=== PATIENT | male | born 1970 | race Caucasian/White ===

== ENCOUNTER 2022-03-10 16:30 | Emergency (ER) | payer OTHER, SELFPAY ==
--- NOTE | ~2022-03-10 | XR_ITS ---
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 RESULT: Lines, tubes, and devices: None. Lungs and pleura: Clear. Cardiomediastinal silhouette: Stable. Other: No acute osseous or upper abdominal finding. IMPRESSION: No acute cardiopulmonary process. Reviewed, dictated and finalized at location K. X ENGINEER
[2022-03-10 16:33] VITALS: BP 157/80; PULSE 99; RESP 18; TEMP 37.2; O2SAT 99
[2022-03-10 16:42] VITALS: O2SAT 98
[2022-03-10 17:25] LABS: Influenza A QL RT-PCR Positive (Negative); Influenza B QL RT-PCR Negative (Negative); RSV RNA, RT-PCR Negative (Negative); SARS-CoV-2 RNA PCR Negative
--- NOTE | 2022-03-10 17:31 | ECG_ITS ---
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
--- NOTE | 2022-03-10 17:32 | ED.URI ---
HPI - URI/Sore Throat General Chief Complaint: Upper Respiratory Infection Stated Complaint: fever, congestion Time Seen by Provider: 03/10/22 17:06 Source: patient Mode of arrival: ambulatory Limitations: no limitations History of Present Illness HPI Narrative: This is a 51-year-old male that presents to the emergency department for cold symptoms present over the last 2 days. Reports fever, cough, congestion, and myalgias. Reports he has been having sharp, intermittent chest pains. He is not influenza vaccinated. He has been taking [id number] cold medications with little relief. Denies shortness of breath. Related Data Allergies Allergy/AdvReac Type Severity Reaction Status Date / Time No Known Allergies Allergy Verified 03/10/22 16:43 Review of Systems Review of Systems: CONSTITUTIONAL: Denies fever EYES: Denies redness, or discharge. ENT: Reports rhinorrhea, congestion. Denies otalgia. CARDIOVASCULAR: Reports chest pain. Denies edema. RESPIRATORY: Reports cough. Denies dyspnea. MUSCULOSKELETAL: Reports myalgia. All systems reviewed & are unremarkable except as noted in HPI and below PMFSH Past Medical History Medical History (Updated 03/10/22 @ 18:21 by Emelyn Camacho PA-C) History of diabetes mellitus History of hyperlipidemia History of hypertension Social History Social History (Updated 03/10/22 @ 17:35 by Emelyn Camacho PA-C) Smoking status: Never smoker Exam Narrative: GENERAL: Well-appearing, well-nourished, and in no acute distress. HEAD: Normocephalic, atraumatic. EYES: EOMI. ENT: Nares clear, no rhinorrhea or epistaxis. Mucous membranes moist. Oropharynx without tonsillar hypertrophy exudate or other lesions. Bilateral TMs pearly mcintosh non-bulging NECK: Supple. No adenopathy or masses. CHEST: Clear to auscultation. No respiratory distress. No wheezes rales or rhonchi HEART: Regular rate and rhythm. No murmur heard. Normal peripheral pulses. EXTREMITIES: Normal range of motion. No edema. SKIN: Warm, dry, no rash. NEURO: No focal deficits. Alert and oriented x3. PSYCH: Normal mood and affect Course Vital Signs Vital signs: Vital Signs Temperature 99.0 F 03/10/22 16:33 Pulse Rate 99 03/10/22 16:33 Respiratory Rate 18 03/10/22 16:33 Blood Pressure 157/80 H 03/10/22 16:33 Pulse Oximetry 99 03/10/22 16:33 Oxygen Delivery Room Air 03/10/22 16:33 Temperature 99.0 F 03/10/22 16:33 Pulse Rate 99 03/10/22 16:33 Respiratory Rate 18 03/10/22 16:33 Blood Pressure 157/80 H 03/10/22 16:33 Pulse Oximetry 98 03/10/22 16:42 Oxygen Delivery Room Air 03/10/22 16:42 MDM - URI/Sore Throat MDM Narrative Medical decision making narrative: Patient presents to the ER for cold symptoms present over the last 2 days. Reporting some intermittent chest pain. Patient is afebrile and nontoxic appearing. His lungs are clear on exam. CBC without concerning findings. Metabolic panel shows hyperglycemia. Otherwise no concerning findings. EKG without acute changes and baseline troponin is negative. Patient found to have Influenza A. Would like to pursue treatment with Tamiflu. Was instructed on other symptomatic management of viral infection. He is to follow-up with primary care provider. He was given warnings to return to the ER Lab Data Attestation: I reviewed the patient's lab results. 03/10/22 17:49 03/10/22 17:49 Labs: Lab Results 03/10/22 03/10/22 03/10/22 Range/Units 16:41 17:49 17:49 WBC 6.4 (4.5-10.0) K/mm3 RBC 5.62 (4.6-6.20) M/mm3 Hgb 15.2 (14.0-18.0) g/dL Hct 45.2 (42.0-52.0) % MCV 80.4 (80-100) fl MCH 27.0 (26-34) pg MCHC 33.6 (32-36) g/dl RDW 13.0 (11.5-14.5) % Plt Count 172 (150-375) k/mm3 MPV 9.3 (7.4-10.4) fl Immature Gran % (Auto) 1.4 H (0-0.5) % Neut % (Auto) 69.1 (45.5-73.1) % Lymph % (Auto) 14.6 L (18.3-44.2) % [place] % (Auto) 13.3 H
[2022-03-10] MEDS: ACETAMINOPHEN 500 MG TABLET 1000 MG PO (17:39)
[2022-03-10 17:54] LABS: Basophils Percent Auto 0.5 % (0.2-1.2); Eosinophils Absolute Auto 0.1 K/mm3 (0-0.3); Eosinophils Percent Auto 1.1 % (0-4.4); Hematocrit 45.2 % (42.0-52.0); Hemoglobin 15.2 g/dL (14.0-18.0); Immature Granulocyte Absolute 0.09 K/mm3 (0.00-0.031); Immature Granulocyte Percent A 1.4 % (0-0.5); Lymphocytes Absolute Auto 0.93 K/mm3 (0.9-3.2); Lymphocytes Percent Auto 14.6 % (18.3-44.2); Mean Corpuscular HGB Conc 33.6 g/dl (32-36); Mean Corpuscular Volume 80.4 fl (80-100); Mean Platelet Volume 9.3 fl (7.4-10.4); Monocytes Absolute Auto 0.9 K/mm3 (0.1-0.6); Monocytes Percent Auto 13.3 % (2.6-8.5); Neutrophils Absolute Auto 4.4 K/mm3 (1.3-6.7); Neutrophils Percent Auto 69.1 % (45.5-73.1); Platelet Count Result 172 k/mm3 (150-375); Red Blood Count 5.62 M/mm3 (4.6-6.20); White Blood Count 6.4 K/mm3 (4.5-10.0)
[2022-03-10 18:16] LABS: Anion Gap 9 mmol/L (8-16); Blood Urea Nitrogen 12 mg/dL (9-20); Calcium 9.4 mg/dL (8.4-10.2); Carbon Dioxide 27 mmol/L (22-30); Chloride 97 mmol/L (98-107); Estimated CRCL calculation 99 ml/min; Estimated Glomerular Filt Rate > 60; Glucose 323 mg/dL (65-110); Potassium 4.4 mmol/L (3.4-5.0); Sodium 133 mmol/L (137-145)
[2022-03-10 18:28] LABS: Troponin I < 0.012 ng/mL (0.000-0.034)
== END 2022-03-10 18:40 | disposition home or self-care (01) ==
PROVIDERS: Emergency Medicine; Emergency Provider Physician Assistant
DX: J10.1 Influenza due to other identified influenza virus with other respiratory manifestations (principal); Z20.822 Contact with and (suspected) exposure to COVID-19; E11.9 Type 2 diabetes mellitus without complications; E78.5 Hyperlipidemia, unspecified; I10 Essential (primary) hypertension
CPT/HCPCS: 36415; 71045; 80048; 84484; 85025; 87637; 93005; 99284; A9270

== ENCOUNTER 2023-04-06 14:05 | Emergency (ER) | payer OTHER, SELFPAY ==
--- NOTE | ~2023-04-06 | CT_ITS ---
EXAMINATION: CT cervical spine wo con DATE: 04/06/2023 16:24 INDICATION: fall, hx c5/6 fusion TECHNIQUE: Computed tomography (CT) of the cervical spine was performed without intravenous contrast. Automated exposure control and iterative reconstruction technique were employed. The dose-length pro duct was 430.86 mGy-cm. COMPARISON: None. FINDINGS: Vertebral Body Alignment: Intact. Craniocervical and atlantoaxial alignment: Mild degenerative change. Alignment intact. Osseous structures/fracture: No evidence of a lytic or blastic process in the visualized spine. No e vidence of acute fracture. Uncomplicated appearing ACDF hardware at C5-7. Cervical soft tissues: The paraspinal soft tissues planes are maintained. Degenerative changes: Multilevel moderate degenerative disc disease and mild facet arthropathy. Sever e left neural foraminal narrowing at C4-5 secondary to degenerative uncovertebral joint and facet vanesa nge. Severe right neural foraminal narrowing at C5-6 secondary to degenerative uncovertebral joint ch milton. Moderate central canal stenosis at C5-6 secondary to a posteriorly directed osteophyte. IMPRESSION: No acute fracture or traumatic malalignment in the cervical spine. Reviewed, dictated and finalized at location K. RTER
--- NOTE | ~2023-04-06 | CT_ITS ---
EXAMINATION: CT thoracic spine wo con DATE: 04/06/2023 16:24 INDICATION: fall, pain to right side . TECHNIQUE: Computed tomography (CT) of the thoracic spine was performed without intravenous contrast. The dose-length product was 1497.37 mGy-cm. COMPARISON: None FINDINGS: Vertebral body alignment intact. Vertebral body heights preserved. Multilevel mild disc space narrowi ng and marginal osteophytosis. No traumatic malalignment or fracture. Nonobstructing right renal calc ifications. Right upper lobe granuloma. Calcified right hilar nodes. Bibasilar scar/atelectasis. IMPRESSION: No acute fracture or traumatic malalignment detected in the thoracic spine Reviewed, dictated and finalized at location K. L AID
--- NOTE | ~2023-04-06 | XR_ITS ---
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 RESULT: Lines, tubes, and devices: Lower cervical ACDF hardware. Lungs and pleura: Low volumes with bibasilar atelectasis. Granulomas calcifications. Cardiothymic silhouette: Stable. Other: No acute upper abdominal finding. Possible nondisplaced right anterolateral eighth rib fractu re. IMPRESSION: Possible nondisplaced right anterolateral eighth rib fracture, correlate with pain/tenderness. Reviewed, dictated and finalized at location K. UTYLENE OPERATOR CHIEF IMPRESSION: Possible nondisplaced right anterolateral eighth rib fracture, correlate with p ain/tenderness.
[2023-04-06 14:08] VITALS: BP 154/84; PULSE 73; RESP 16; TEMP 36.8; O2SAT 97
--- NOTE | 2023-04-06 15:27 | ED.BACK ---
HPI - Back Pain/Injury General Chief Complaint: Back Pain/Injury Stated Complaint: right upper back pain Time Seen by Provider: 04/06/23 15:27 Source: patient Mode of arrival: ambulatory Limitations: no limitations History of Present Illness HPI Narrative: Patient is a pleasant 52-year-old male past medical history as noted below presents emergency department today ambulatory with a steady gait for evaluation of right-sided mid/ upper back pain right rib pain with concerns of a possible rib fracture. Yesterday he slipped on the ice going down a wooden ramp and fell directly on the right side of his back. He states that it knocked the wind out of him. tried to rest and take a norco he had left over but it did not touch the pain. He did not strike his head or neck. He has had a surgery on his neck a C5-C6 fusion. denies numbness/tingling to bilateral lower extremities, loss of control of his bowels/bladder, numbness to his groin, urinary symptoms, fever, chills, chest pain, cough, shortness of breath at rest. there is pain with coughing and deep breathing. Related Data Home Medications Medication Instructions Recorded Confirmed allopurinol 300 mg tablet mg 04/06/23 empagliflozin 25 mg tablet mg 04/06/23 (Jardiance) escitalopram oxalate 10 mg tablet mg 04/06/23 lisinopril 40 mg tablet mg 04/06/23 metformin 750 mg tablet,extended mg PO 04/06/23 04/06/23 release 24 hr semaglutide 1 mg/dose (4 mg/3 mL) mg subcut 04/06/23 subcutaneous pen injector (Ozempic) Allergies Allergy/AdvReac Type Severity Reaction Status Date / Time No Known Allergies Allergy Verified 04/06/23 15:27 Review of Systems Review of Systems: All systems reviewed & are unremarkable except as noted in HPI and below PMFSH Past Medical History Medical History (Updated 04/06/23 @ 17:21 by Kaya Polanco APRN) History of diabetes mellitus History of hyperlipidemia History of hypertension Social History Social History (Updated 03/10/22 @ 17:35 by Emelyn Camacho PA-C) Smoking status: Never smoker Exam Narrative: GENERAL: Well-appearing, overweight, well-nourished, and in no acute distress. does appear mildly uncomfortable with exertion. HEAD: Normocephalic, atraumatic. EYES: PERRLA and EOMI. ENT: Nares clear, no rhinorrhea or epistaxis. Mucous membranes moist. NECK: Supple. no midline bony tenderness noted. full ROM noted CHEST: Clear to auscultation. No respiratory distress. +tenderness to the right anterior/lateral lower ribs. no bruising, no crepitus noted. HEART: Regular rate and rhythm. No murmur heard. Normal peripheral pulses. ABDOMEN: Soft, nontender, nondistended, normal active bowel sounds. BACK: there is tenderness to the right thoracic side of back with mild swelling. no bruising. no midline bony tenderness. no lower back pain noted. full ROM although there is pain. EXTREMITIES: Normal range of motion. No edema. SKIN: Warm, dry, no rash. NEURO: No focal deficits. Alert and oriented x3. CN II-XII grossly intact. steady gait. UE and LE distal pulses, sensation, cap refill, temperature, strength are intact and equal bilaterally PSYCH: Normal mood and affect. Course Vital Signs Vital signs: Vital Signs Temperature 98.3 F 04/06/23 14:08 Pulse Rate 73 04/06/23 14:08 Respiratory Rate 16 04/06/23 14:08 Blood Pressure 154/84 H 04/06/23 14:08 Pulse Oximetry 97 04/06/23 14:08 Oxygen Delivery Room Air 04/06/23 14:08 Temperature 98.3 F 04/06/23 14:08 Pulse Rate 73 04/06/23 14:08 Respiratory Rate 16 04/06/23 14:08 Blood Pressure 154/84 H 04/06/23 14:08 Pulse Oximetry 97 04/06/23 14:08 Oxygen Delivery Room Air 04/06/23 14:08 MDM - Back Pain/Injury MDM Narrative Medical decision making narrative: pt presents with right upper back pain and rib pain after a fall. Normal motor and sensory exam. Patient able to ambulate. No evidence of acute cord compression, osteomyelit
[2023-04-06] MEDS: diazePAM INJ (*CRX) 10 MG/2 ML SYRINGE 5 MG IM (16:03)
[2023-04-06] MEDS: KETOROLAC (*BKC) 60 MG/2 ML VIAL IM (16:03)
[2023-04-06] MEDS: LIDOCAINE 5% PATCH 1 PATCH TRANSDERM (16:04)
== END 2023-04-06 17:35 | disposition home or self-care (01) ==
PROVIDERS: Emergency Provider Nurse Practitioner
DX: S22.31XA Fracture of one rib, right side, initial encounter for closed fracture (principal); M54.6 Pain in thoracic spine; E11.9 Type 2 diabetes mellitus without complications; Z79.84 Long term (current) use of oral hypoglycemic drugs; I10 Essential (primary) hypertension; E78.5 Hyperlipidemia, unspecified; W00.9XXA Unspecified fall due to ice and snow, initial encounter
CPT/HCPCS: 71101; 72125; 72128; 96372; 99284; A9270; J1885; J3360